=== PATIENT | male | born 2005 | race Two or more races ===

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

== ENCOUNTER 2023-04-06 16:42 | Emergency (ER) | payer MEDICAID | END 2023-04-06 16:53 | disposition left against medical advice (07) | LOC: ER 16:42 | DX: Z04.6 Encounter for general psychiatric examination, requested by authority (principal); Z53.21 Procedure and treatment not carried out due to patient leaving prior to being seen by health care provider ==

== ENCOUNTER 2025-02-01 14:16 | Emergency (ER) | payer MEDICAID ==
[~2025-02-01] VITALS: Ht 180.3 cm; Wt 68.5 kg
[2025-02-01 14:20] VITALS: BP 109/82; PULSE 70; RESP 16; TEMP 97.2; O2SAT 100
--- NOTE | 2025-02-01 14:42 | Physician Documentation ---
History of Present Illness ~ Chief Complaint: Mental Health Eval Stated Complaint: MH Time Seen by MD: 14:24 Primary Medical Doctor: JAYDON HIRSCH [facility] This is a 19-year-old male with a possible history of schizophrenia who was brought to the emergency department by his brother. His brother reports that the patient's behavior has been erratic, he often will not speak, and he is no longer able to care for him. He reports that he has tried to get him into a psychiatric care facility without success. He presents here due to concerns that his brother was unable to care for himself, that he no longer can. When questioned, the patient denies any concerns. He additionally denies any suicidal or homicidal ideation. Medication Reconciliation Allergies: Coded Allergies: No Known Allergies (Unverified , 02/01/25) Scheduled Methylprednisolone (Medrol), 4 MG PO DAILY Scheduled PRN Diphenhydramine Hcl (Benadryl), 25 MG PO Q6H PRN for rash Past Medical History Past Medical History: No Pertinent History Past Surgical History: no surgical history Alcohol Use: None Drug Use: none Lives with: Other Lives In: Home Occupation: child Review of Systems ROS As stated above in the HPI, otherwise all systems are reviewed and negative. Physical Exam Vital Signs: Temperature: 97.2, Source: Temporal, Heart Rate: 70, Respiratory Rate: 16, BP: 109/82, Pulse Oximetry: 100, Weight: 68.500 Oxygen Flow Rate: 0 Physical Exam General: Alert, no apparent distress. HEENT: PERRL, EOMI, no injection, moist mucous membranes. Neck: Full range of motion. Respiratory: Lungs clear, no respiratory distress. Chest: No accessory muscle use. Cardiovascular: Regular rate and rhythm, no murmurs. Gastrointestinal: Soft, nontender, nondistended. Bowels sounds present. Extremities: Normal range of motion, no deformity. Neurologic: Oriented x4. Psychiatric: Normal mood and affect. Skin: Normal color, warm and dry. No edema, no ecchymosis. Progress Progress Note 1444: RN reports patient left prior to workup including labs. Results/Orders Results/Orders Orders - MARYLIN MARIE NP Cbc/Diff (02/01/25 14:24) Urinalysis (02/01/25 14:24) Drug Screen, Urine (02/01/25 14:24) Ethanol (02/01/25 14:24) TSH (02/01/25 14:24) Mh Med Rec (02/01/25 14:24) BMP (02/01/25 14:24) Close Observation Level (02/01/25 14:24) Covid19 Binax Poc Result Entry (02/01/25 14:24) Substance Use Navigator (02/01/25 14:24) Vital Signs 02/01/25 14:20 Temp 97.2 Pulse 70 Resp 16 B/P (MAP) 109/82 Pulse Ox 100 O2 Flow Rate 0 Medical Decision Making Additional information obtaine: family Findings Patient's brother contributes the majority of the history. This patient speaks in one-word sentences and answers simple commands. Differential Dx:Considerations: Include: Alcohol abuse, Anxiety, Bipolar disorder, Conversion disorder, Depression, Encephaloathy, Homicidal, Panic disorder, Personality disorder, Schizophrenia, Substance abuse, Suicidal Departure Time of Disposition: 15:18 Impression: Primary Impression: Mental disorder Additional Impression Text Patient left without workup including labs. Referrals: NO PRIMARY CARE PROVIDER (PCP) Signature Scribe Signature: x Attestation: The note accurately reflects work and decisions made by me.Marylin Ramey NP 02/01/25 14:41 MARYLIN MARIE NP Feb 01, 2025 14:42
== END 2025-02-01 14:49 | disposition left against medical advice (07) ==
LOC: ER 14:17
DX: F99 Mental disorder, not otherwise specified (principal)
CPT/HCPCS: 99282